=== PATIENT | female | born 1970 | race Caucasian/White ===

== ENCOUNTER → 2024-02-17 11:14 | Outpatient (REF) | payer OTHER, SELFPAY | LOC: WDC 11:14 | PROVIDERS: ATTENDING PHYSICIAN Family Medicine | DX: Z12.31 Encounter for screening mammogram for malignant neoplasm of breast (principal) | CPT/HCPCS: 77063; 77067 ==

== ENCOUNTER 2025-01-18 23:35 | Emergency (ER) | payer OTHER, SELFPAY ==
[2025-01-18 23:49] VITALS: BP 135/94
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
[2025-01-19 00:08] VITALS: BP 112/74
[2025-01-19 01:00] VITALS: BP 111/70
[2025-01-19 01:41] VITALS: BP 113/67
[2025-01-19 03:45] VITALS: BP 118/74
== END 2025-01-19 03:45 | disposition home or self-care (01) ==
LOC: EMR 23:35
PROVIDERS: EMERGENCY PHYSICIAN Emergency Medicine
DX: S00.03XA Contusion of scalp, initial encounter (principal); S00.11XA Contusion of right eyelid and periocular area, initial encounter; W10.1XXA Fall (on)(from) sidewalk curb, initial encounter; R03.0 Elevated blood-pressure reading, without diagnosis of hypertension
CPT/HCPCS: 99285; 70450; 72125

== ENCOUNTER → 2025-01-24 16:13 | Outpatient (REF) | payer OTHER, SELFPAY | LOC: RAD 16:13 | PROVIDERS: ATTENDING PHYSICIAN Physician Assistant; FAMILY PHYSICIAN Family Medicine | DX: R14.0 Abdominal distension (gaseous) (principal); N92.0 Excessive and frequent menstruation with regular cycle | CPT/HCPCS: 76830; 76856 ==